=== PATIENT | male | born 1985 | race Asian ===

== ENCOUNTER 2016-10-08 23:47 | Emergency (ER) | payer OTHER ==
[2016-10-09] VITALS: BP 121/81
[2016-10-09] MEDS ORDERED: TYLENOL PO ONE (00:01)
[2016-10-09 00:29] LABS: Basophils % (Auto) 0.4 % (0.0-1.8); Eosinophils % (Auto) 1.8 % (0.0-4.3); Hematocrit 45.5 % (35.5-45.6); Hemoglobin 15.1 gm/dl (11.8-15.2); Mean Corpuscular HGB Conc 33 % (32-34); Mean Corpuscular Hemoglobin 30 pg (28-32); Mean Corpuscular Volume 89 fl (84-94); Platelet Count 308 K/mm3 (140-440); Red Blood Count 5.11 M/mm3 (3.65-5.03); Red Cell Distribution Width 13.3 % (13.2-15.2)
[2016-10-09 00:52] LABS: Alanine Aminotransferase 28 units/L (7-56); Albumin 4.2 g/dL (3.9-5); Albumin/Globulin Ratio 1.4 %; Alkaline Phosphatase 102 units/L (35-129); Anion Gap 17 mmol/L; Bilirubin,Total 0.8 mg/dL (0.1-1.2); Blood Urea Nitrogen 12 mg/dL (9-20); Calcium 8.8 mg/dL (8.4-10.2); Carbon Dioxide 28 mmol/L (22-30); Chloride 95.2 mmol/L (98-107); Glucose 100 mg/dL (75-100); Potassium 4.2 mmol/L (3.6-5.0); Sodium 136 mmol/L (137-145); Total Protein 7.2 g/dL (6.3-8.2)
[2016-10-09 05:05] LABS: Bilirubin,Urine NEG (Negative); Blood,Urine SM (Negative); Ketones,Urine NEG (Negative); Leukocyte Esterase,Urine NEG (Negative); Mucus,Urine FEW /HPF; Nitrite,Urine NEG (Negative); Protein,Urine <15 mg/dL mg/dL (Negative); Urobilinogen,Urine < 2.0 mg/dL (<2.0)
--- NOTE | 2016-10-11 18:52 | ED Elopement Review ---
ED Pt Elopement review - Results review Lab results: Laboratory Tests 10/09/16 10/09/16 10/09/16 00:18 00:18 Unknown WBC 16.0 H RBC 5.11 H Hgb 15.1 Hct 45.5 MCV 89 MCH 30 MCHC 33 RDW 13.3 Plt Count 308 Lymph % (Auto) 20.1 [place] % (Auto) 12.2 H Eos % (Auto) 1.8 Baso % (Auto) 0.4 Lymph # 3.2 [place] # 2.0 H Eos # 0.3 Baso # 0.1 Seg Neutrophils % 65.5 Seg Neutrophils # 10.5 H Sodium 136 L Potassium 4.2 Chloride 95.2 L Carbon Dioxide 28 Anion Gap 17 BUN 12 Creatinine 0.8 Estimated GFR > 60 BUN/Creatinine Ratio 15.00 Glucose 100 Calcium 8.8 Total Bilirubin 0.8 AST 25 ALT 28 Alkaline Phosphatase 102 Total Protein 7.2 Albumin 4.2 Albumin/Globulin Ratio 1.4 Urine Color Yellow Urine Turbidity Clear Urine pH 7.0 Ur Specific Latty 1.015 Urine Protein <15 mg/dl Urine Glucose (UA) Neg Urine Ketones Neg Urine Blood Sm Urine Nitrite Neg Urine Bilirubin Neg Urine Urobilinogen < 2.0 Ur Leukocyte Esterase Neg Urine WBC (Auto) 1.0 Urine RBC (Auto) 6.0 U Epithel Cells (Auto) 1.0 Urine Mucus Few - Call Back decision Pt Call Back Decision: Call pt to return to ED KG (fever, tachycardia and leukocytosis in the setting of abdominal pain should be further evaluated)
== END 2016-10-09 04:59 | disposition left against medical advice (07) ==
LOC: ED 23:47
DX: R53.1 Weakness (principal); R51 Headache; R10.30 Lower abdominal pain, unspecified; R11.0 Nausea; F17.200 Nicotine dependence, unspecified, uncomplicated; Z53.21 Procedure and treatment not carried out due to patient leaving prior to being seen by health care provider
CPT/HCPCS: 36415; 80053; 81001; 85025